=== PATIENT | male | born 1990 | race Caucasian/White ===

== ENCOUNTER 2016-09-24 01:32 | Emergency (ER) | payer OTHER ==
[~2016-09-24] VITALS: Ht 172.7 cm; Wt 70.3 kg
[2016-09-24 01:32] VITALS: BP 120/90; PULSE 90; RESP 20; TEMP 98.1; O2SAT 100
--- NOTE | 2016-09-24 01:35 | NUR ---
Patient to [facility] for evaluation.
--- NOTE | 2016-09-24 01:44 | NUR ---
ER examining patient.
--- NOTE | 2016-09-24 01:52 | NUR ---
Written and verbal consent obtained from patient for blood alcohol, name and verified by patient. Disinfected patient's skin with providone that did not contain alcohol or other volatile organic compound. Collected the blood from the subject named by venipuncture, in the presence of Officer Delfino Bowen with badge number [id number]. Used a sterile, dry hypodermic needle and dry vacuum blood collection. The dry vacuum blood collection was supplied by the officer named above. Withdrew a specimen of blood from RAC of the subject named above. Inverted the blood tube several times to ensure that the preservative and anticoagulant were thoroughly mixed in the blood specimen. I initialed the blood tube label for identification. The labeled blood tube was handed directly to the Officer named above. The blood tube stopper remained in place while I had possession of the blood tube. The Officer placed tube into envelope and sealed it in my presence. Envelope initialed by myself and Officer named above. Patient tolerated well, bandage applied, and bleeding controlled.
[2016-09-24 02:00] VITALS: BP 122/88; PULSE 91; RESP 20; TEMP 98.1; O2SAT 100
--- NOTE | 2016-09-24 02:00 | NUR ---
Pt ambulated out of ER with law enforcement officers. Discharge papers given.
== END 2016-09-24 02:00 ==
LOC: SED 01:32
DX: Z02.89 Encounter for other administrative examinations (principal); F10.129 Alcohol abuse with intoxication, unspecified; Y90.9 Presence of alcohol in blood, level not specified
CPT/HCPCS: 99283